=== PATIENT | female | born 1950 | race Native Hawaiian/Other Pacific Islander ===

== ENCOUNTER 2016-04-21 11:00 | Outpatient (CLI) | payer OTHER ==
[~2016-04-21 11:00] MED LIST: AMIT25TA22 PO; CELEXA10 MG PO; CLEM2.687 OR; EQ STOOL SOFTE100 MG PO; FE TABS325 MG OR; LEVO0.0218 PO; MAALOX OR; MAGNSUS68 PO; MECLIZINE25 MG OR; MELOXICAM7.5 MG PO; OMEPRAZOLE20 M1 PO; ONDA4TAB3 PO; POLY3350 PO; SIMV20TA2 PO; TRAZ100T PO; TRIM800T12 PO; VESICARE5 MG PO; Z-PAK PO; ZANTAC300 MG PO
== END 2016-04-21 20:29 | disposition home or self-care (01) ==
LOC: RAD 11:00
DX: M54.2 Cervicalgia (principal)

== ENCOUNTER 2016-07-07 10:34 | Outpatient (CLI) | payer OTHER | END 2016-07-07 19:44 | disposition home or self-care (01) | LOC: RAD 10:34 | DX: M79.672 Pain in left foot (principal) ==

== ENCOUNTER 2017-01-12 18:15 | Outpatient (CLI) | payer OTHER | END 2017-01-12 19:08 | disposition home or self-care (01) | LOC: RAD 18:15 | DX: M79.671 Pain in right foot (principal); S82.831A Other fracture of upper and lower end of right fibula, initial encounter for closed fracture ==

== ENCOUNTER 2017-01-13 15:24 | Outpatient (CLI) | payer OTHER | END 2017-01-13 19:13 | disposition home or self-care (01) | LOC: US 15:24 → RAD 15:24 | DX: M25.551 Pain in right hip (principal); M79.89 Other specified soft tissue disorders ==

== ENCOUNTER 2017-03-03 11:08 | Outpatient (CLI) | payer OTHER | END 2017-03-03 19:21 | disposition home or self-care (01) | LOC: LAB 11:08 | DX: R30.0 Dysuria (principal) | CPT/HCPCS: 81000; 87077; 87086; 87088; 87186 ==

== ENCOUNTER 2017-12-27 09:30 | Outpatient (CLI) | payer OTHER ==
[2017-12-27 09:58] LABS: PLATELET COUNT 112 K/uL (152-353)
== END 2017-12-27 19:16 | disposition home or self-care (01) ==
LOC: LABW 09:30 → MAMMO 09:30 → LABW 19:16
PROVIDERS: Internal Medicine
DX: E03.9 Hypothyroidism, unspecified (principal); E78.5 Hyperlipidemia, unspecified; Z12.31 Encounter for screening mammogram for malignant neoplasm of breast
CPT/HCPCS: 36415; 80053; 80061; 83540; 84439; 84443; 85027

== ENCOUNTER 2018-12-29 09:01 | Outpatient (CLI) | payer OTHER | END 2018-12-29 19:43 | disposition home or self-care (01) | LOC: MAMMO 09:01 | DX: Z12.31 Encounter for screening mammogram for malignant neoplasm of breast (principal) ==